=== PATIENT | male | born 1970 | race Caucasian/White ===

== ENCOUNTER 2022-01-04 03:22 | Emergency (ER) | payer BC, MEDICAID ==
[2022-01-04] MEDS ORDERED: Sodium Chloride 0.9% 10 ML Syringe FLUSH PRN (03:26)
[2022-01-04] MEDS ORDERED: Ondansetron 4 MG/2 ML SDV IVPUSH ONE (03:26)
[2022-01-04] MEDS ORDERED: Ketorolac 30 MG/ML SDV IVPUSH ONE (03:26)
[2022-01-04] MEDS ORDERED: Sodium Chloride 0.9% 1,000 ML IV SCH (03:30)
[2022-01-04 03:55] LABS: ESTIMATED GFR 46 (>60)
== END 2022-01-04 04:30 | disposition home or self-care (01) ==
LOC: JP.ED 03:22
DX: R10.83 Colic (principal); N13.2 Hydronephrosis with renal and ureteral calculous obstruction; F15.10 Other stimulant abuse, uncomplicated; F12.10 Cannabis abuse, uncomplicated; Z20.822 Contact with and (suspected) exposure to COVID-19
CPT/HCPCS: 36415; 74176; 80053; 80305-QW; 81001; 83605; 85025; 96361; 96374; 96375; 99284; 99284-25; J1885; J2405; J3490; J7030; U0002